=== PATIENT | male | born 1940 | race Asian ===

== ENCOUNTER → 2016-12-08 | Outpatient (CLI) | payer MEDICAID | END | disposition home or self-care (01) | LOC: RADPV 12:05 | PROVIDERS: ATTEND Internal Medicine | DX: J43.2 Centrilobular emphysema (principal); R06.02 Shortness of breath; J42 Unspecified chronic bronchitis; I70.0 Atherosclerosis of aorta; I25.10 Atherosclerotic heart disease of native coronary artery without angina pectoris; Z87.891 Personal history of nicotine dependence | CPT/HCPCS: 71250; 93880; 93925 ==

== ENCOUNTER 2018-10-01 14:45 | Emergency (ER) | payer MEDICAID, OTHER ==
[~2018-10-01] VITALS: Ht 162.6 cm; Wt 54.5 kg
[2018-10-01 15:18] LABS: GLUCOSE,POINT OF CARE 196 MG/DL (70-110)
[2018-10-01] MEDS ORDERED: HYDR25TA84 PO (15:19)
[2018-10-01] MEDS ORDERED: CALC-1038 PO (15:19)
[2018-10-01] MEDS ORDERED: LOSA50TA25 PO (15:19)
[2018-10-01] MEDS ORDERED: ASPI-556 PO ×2 (15:19)
[2018-10-01] MEDS ORDERED: METO25XL PO (15:19)
[2018-10-01] MEDS ORDERED: HYDR25TA PO (15:19)
[2018-10-01] MEDS ORDERED: SIMV-260 PO (15:19)
[2018-10-01] MEDS ORDERED: METF-960 PO (15:19)
[2018-10-01] MEDS ORDERED: AMLO-512 PO (15:19)
[2018-10-01] MEDS ORDERED: GLIM2 PO (15:19)
[2018-10-01 18:05] LABS: INFLUENZA TYPE A NEGATIVE FOR TYPE A (NEGATIVE); INFLUENZA TYPE B NEGATIVE FOR TYPE B (NEGATIVE)
[2018-10-01 19:00] VITALS: BP 129/60
== END 2018-10-01 19:00 | disposition home or self-care (01) ==
LOC: EMS 14:46
DX: J20.9 Acute bronchitis, unspecified (principal); E11.9 Type 2 diabetes mellitus without complications; I10 Essential (primary) hypertension; Z86.73 Personal history of transient ischemic attack (TIA), and cerebral infarction without residual deficits; Z79.82 Long term (current) use of aspirin; Z79.84 Long term (current) use of oral hypoglycemic drugs
CPT/HCPCS: 87804

== ENCOUNTER 2022-11-21 12:29 | Emergency (ER) | payer MEDICAID, MEDICARE, OTHER ==
[~2022-11-21] VITALS: Ht 160 cm; Wt 54.5 kg
[~2022-11-21 12:29] MED LIST: AMLO-258 PO; ASPI-556 PO; CALC-1038 PO; GLIM2 PO; HYDR25TA2 PO; HYDR25TA84 PO; LOSA-382 PO; METF-1211 PO; METO25XL PO; SIMV-260 PO
[2022-11-21 13:28] LABS: BASOPHILS % (AUTO) 0.7 % (0.0-2.0); EOSINOPHILS % (AUTO) 1.2 % (1.0-6.0); HEMATOCRIT 37.5 % (41-53); HEMOGLOBIN 12.3 g/dL (13.5-17.5); LYMPHOCYTES # (AUTO) 1.6 K/uL (1.0-4.8); LYMPHOCYTES % (AUTO) 14.5 % (22.0-44.0); MEAN CORPUSCULAR HEMOGLOBIN 29.1 pg (26.0-34.0); MEAN CORPUSCULAR HGB CONC 32.9 G/dL (31.0-37.0); MEAN CORPUSCULAR VOLUME 89 fL (80-100); MONOCYTES # (AUTO) 0.9 K/uL (0.1-1.0); MONOCYTES % (AUTO) 8.5 % (2.0-9.0); NEUTROPHILS # (AUTO) 8.2 K/uL (1.8-7.7); NEUTROPHILS % (AUTO) 75.1 % (40.0-70.0); PLATELET COUNT (AUTO) 238 K/uL (150-450); RED BLOOD CELL COUNT(AUTO) 4.23 MIL/uL (4.50-5.90); RED CELL DISTRIBUTION WIDTH 13.9 % (11.5-14.5)
[2022-11-21 13:46] LABS: CALCIUM, TOTAL 9.1 mg/dL (8.8-10.5); CREATININE 1.77 mg/dL (0.60-1.30); POTASSIUM 3.9 mmol/L (3.5-5.1)
[2022-11-21 13:54] LABS: ALBUMIN 3.1 g/dL (3.4-5.0); BILIRUBIN,TOTAL 1.1 mg/dL (0.1-1.0); TOTAL PROTEIN, SERUM 7.8 g/dL (6.4-8.2)
[2022-11-21] MEDS ORDERED: KETOROLAC TROMETHAMINE 60 MG/2 ML VIAL IM ONE (14:15)
[2022-11-21 14:38] LABS: ERYTHROCYTE SEDIMENTATION RATE 68 MM/HR (0-15)
[2022-11-21] MEDS ORDERED: PERCT PO (14:51)
[2022-11-21] MEDS ORDERED: IBUP-1492 PO (14:52)
[2022-11-21 15:46] VITALS: BP 128/75
== END 2022-11-21 16:07 | disposition home or self-care (01) ==
LOC: EMS 12:43
DX: M17.11 Unilateral primary osteoarthritis, right knee (principal); E11.9 Type 2 diabetes mellitus without complications; I10 Essential (primary) hypertension
CPT/HCPCS: 99284; 80053; 82962; 85025; 85651; 36415; 73564; 96372; J1885